=== PATIENT | female | born 2005 | race Two or more races ===

== ENCOUNTER 2024-12-29 09:47 | Emergency (ER) | payer MEDICAID, SELFPAY ==
[2024-12-29 09:54] VITALS: BP 127/76; PULSE 72; RESP 16; TEMP 37.1; O2SAT 97; BMI 26.1
--- NOTE | 2024-12-29 10:18 | PD.EDEAR ---
ED Ear RME/HPI General Chief complaint: Ear Stated complaint: Bug in left ear Time Seen by Provider: 12/29/24 09:51 Arrival date/time: 12/29/24 09:47 This is a 19-year-old female that comes into the emergency room with complaints of bug to the left ear. Patient was seen at the clinic this morning. They irrigated her ear to try to get the bug out. Patient does not think they got the bug out. Patient was told to come to the emergency room. Patient complains of ear pain. Related Data Home Medications ?Medication ?Instructions ?Recorded ?Confirmed atenolol 50 mg tablet 50 mg PO QDAY 02/10/18 07/09/20 ranitidine HCl 75 mg tablet 75 mg PO BID 02/10/18 07/09/20 Previous Rx's ?Medication ?Instructions ?Recorded sulfamethoxazole 800 1 tab PO BID #20 tabs 07/09/20 mg-trimethoprim 160 mg tablet (Bactrim DS) ibuprofen 800 mg tablet 800 mg PO Q6H PRN pain #10 tabs 12/29/24 ofloxacin 0.3 % ear drops 10 drp otic (ear) QDAY 7 days #10 12/29/24 mL Allergies Allergy/AdvReac Type Severity Reaction Status Date / Time No Known Allergies Allergy Verified 12/29/24 09:51 Course Orders Category Date Time Status 1,000 mg IM w/Lido* 1% Med 12/29/24 10:27 Ordered cefTRIAXone [Rocephin] 1,000 mg Lidocaine 1% 20 ml [Xylocaine 1% 20 ML] 2.1 ml IM X1 Ibuprofen Tab [Motrin Tab] Med 12/29/24 10:26 Once 800 mg PO X1 ONE Vital Signs Vital signs: Vital Signs Temperature 98.7 F 12/29/24 09:54 Pulse Rate 72 12/29/24 09:54 Respiratory Rate 16 12/29/24 09:54 Blood Pressure 127/76 12/29/24 09:54 Pulse Oximetry (%) 97 12/29/24 09:54 Oxygen Delivery Method Room Air 12/29/24 09:54 Ear MDM Narrative MDM Narrative:: Upon assessment patient's left ear canals pretty swollen and erythemic. TM is intact. Because of the ambulation patient ears done by both her and the doctors office and now ear canal swollen we will treat for otitis media and otitis externa. Patient will be given a dose of Rocephin here and eardrops to go home with. I will also send patient home with eardrops. Patient told to come back to the emergency room if symptoms change or worsen. Patient told to make sure she follows up with the clinic next week to have her ear rechecked. Medications / Prescriptions Medication administrations:: Medication Administration History Ibuprofen (Ibuprofen Tab 400 Mg Tablet) 800 mg PO X1 ONE Stop: 12/29/24 10:27 Discharge Plan Plan Patient Disposition: HOME (Self Care) Patient condition on transfer: Stable Prescriptions/Referrals Prescriptions/Med Rec: New ibuprofen 800 mg tablet 800 mg PO Q6H PRN (Reason: pain) Qty: 10 0RF ofloxacin 0.3 % drops 10 drp otic (ear) QDAY 7 Days Qty: 10 0RF No Action sulfamethoxazole-trimethoprim [Bactrim DS] 800-160 mg tablet 1 tab PO BID Qty: 20 0RF ranitidine HCl 75 mg Tablet 75 mg PO BID atenolol 50 mg Tablet 50 mg PO QDAY Problem List Clinical Impression: Foreign body in ear Patient/Caregiver Discharge Instructions Discharge Activity: activity as tolerated Education Materials: ED EAR CANAL Foreign Body, ED External Ear Infection (Adult) Additional Instructions: Follow up with primary provider in 1-2 days. Come back to ED if symptoms change or worsen. I let patient know to have her ear rechecked next week with her primary provider. Print Language: Latvian Stand Alone Forms: Yazmin Award Info., Patient Portal Info Letter PA/MICROGRINDER OPERATOR Supervising Physician PA/MICROGRINDER OPERATOR Supervising Physician: [email or web address]
[2024-12-29] MEDS: IBUPROFEN TAB 400 MG TABLET 800 MG PO (10:46)
[2024-12-29] MEDS: cefTRIAXone 1,000 MG, LIDOCAINE 1% 20 ML 2.1 ML IM (10:46)
== END 2024-12-29 11:17 | disposition home or self-care (01) ==
LOC: SERX 11:06
PROVIDERS: Emergency Provider Family Medicine
DX: T16.2XXA Foreign body in left ear, initial encounter (principal); W44.F4XA Insect entering into or through a natural orifice, initial encounter
CPT/HCPCS: 96372; 99283; J0696; J3490; A9270

== ENCOUNTER 2025-01-01 11:00 | Emergency (ER) | payer MEDICAID, SELFPAY ==
[2025-01-01 11:01] VITALS: BMI 26.6
--- NOTE | 2025-01-01 11:44 | EDNOTE_ITS ---
ED Ear RME/HPI General Chief complaint: Ear Stated complaint: RECHECK LEFT EAR POSS INSECT IN EAR Time Seen by Provider: 01/01/25 11:40 Arrival date/time: 01/01/25 11:00 Limitations: no limitations RME / HPI RME / HPI Narrative: 19 year old female who believes she has a foreign body in her left ear. She was seen in clinic last week with similar complaints. Had ears irrigated then came to the ER with continued concerns. She was placed on antibiotics for possible otitis externa. She is here today for an additional ear check and is concerned she has a bug in her left ear. She has no other acute complaints. Related Data Home Medications ?Medication ?Instructions ?Recorded ?Confirmed atenolol 50 mg tablet 50 mg PO QDAY 02/10/1807/09 ranitidine HCl 75 mg tablet 75 mg PO BID 02/10/1806/28 Previous Rx's ?Medication ?Instructions ?Recorded sulfamethoxazole 800 1 tab PO BID #20 tabs mg-trimethoprim 160 mg tablet (Bactrim DS) ibuprofen 800 mg tablet 800 mg PO Q6H PRN pain #10 t abs 12/29/24 ofloxacin 0.3 % ear drops 10 drp otic (ear) QDAY 7 day s #10 12/29/24 mL Allergies Allergy/AdvReac Type Severity Reaction Status Date / Time No Known Allergies Allergy Verified 01/01/25 11:02 Review of Systems Review of Systems Systems Reviewed: All systems reviewed, normal except as documented ED Exam General Limitations: Present no limitations General appearance: Present alert and in no apparent distress Head Head exam: Present atraumatic Eye Eye exam: Present normal appearance, PERRL and EOMI ENT ENT exam: Present normal exam, normal oropharynx, mucous membranes moist, TM's normal bilaterally, normal external ear exam and other (Bilateral ear canals are patent no foreign bodies are appreciated. Tympanic membranes are pearly loomis.) Neck Neck exam: Present normal inspection, full ROM and trachea midline Chest Chest inspection: Present normal inspection and symmetric chest wall rise Respiratory Respiratory exam: Present normal lung sounds bilaterally Cardiovascular Cardiovascular exam: Present regular rate, normal rhythm and normal heart sounds Abdominal Exam Abdominal exam: Present soft and normal bowel sounds Extremities Exam Extremities exam: Present normal inspection and full ROM Back Exam Back exam: Present normal inspection and full ROM Neurological Exam Neurological exam: Present alert and oriented X3 Psychiatric Psychiatric exam: Present normal affect and normal mood Skin Skin exam: Present warm, dry, intact and normal color Course Quality Measures none Ear MDM Narrative MDM Narrative:: 19 year old female who believes she has a foreign body in her left ear. She was seen in clinic last week with similar complaints. Had ears irrigated then came to the ER with continued concerns. She was placed on antibiotics for possible otitis externa. She is here today for an additional ear check and is concerned she has a bug in her left ear. She has no other acute complaints. On exam, patient is nontoxic-appearing and in no visible signs distress. Bilateral ear canals are patent. She is advised to continue her current therapies. Follow-up in clinic as needed. Return as needed for worsening changes. Patient data External records reviewed:: [facility] previous records Clinical information provided by:: patient Social determinants that could affect healthcare access:: none Patient has the following chronic illnesses:: n/a How is presenting disease/condition affected by chronic disease/condition?: no chronic disease Evaluation data The following diagnostics were reviewed and interpreted by me:: other (specify) (n/a) Lab and/or radiology exams considered but not ordered:: n/a Interpretation Summary: n/a Medications / Prescriptions Medications or Prescriptions considered but not ordered:: n/a Medication administrations:: n/a Consultations Consultation(s) initiated? (list below): No Diagnosis Ear Differential Diagnosis: otitis externa, otitis media, foreign body in ear, ruptured TM and cerumen impaction Most likely diagnosis given after review of the tests above:: Recheck otitis externa Admission Indicated Admission indicated?: not indicated Admission Request Was there a request for admission?: No Disposition Plan Disposition Plan: Discharge Discharge Attestation Discharge Attestation: The patient and all family members were given an opportunity to ask questions and understood the discharge instructions. Discharge instructions specifically effects, indications for sooner follow up or return to the emergency department, and the expected course of current diagnosis. Patient condition: Stable Discharge Plan Plan Patient Disposition: HOME (Self Care) Patient condition on transfer: Stable Prescriptions/Referrals Prescriptions/Med Rec: No Action sulfamethoxazole-trimethoprim [Bactrim DS] 800-160 mg tablet 1 tab PO BID Qty: 20 0RF ranitidine HCl 75 mg Tablet 75 mg PO BID atenolol 50 mg Tablet 50 mg PO QDAY ibuprofen 800 mg tablet 800 mg PO Q6H PRN (Reason: pain) Qty: 10 0RF ofloxacin 0.3 % drops 10 drp otic (ear) QDAY 7 Days Qty: 10 0RF Problem List Clinical Impression: Otitis externa Patient/Caregiver Discharge Instructions Education Materials: ED External Ear Infection (Adult) Additional Instructions: - Continue ibuprofen. - Finish your antibiotics as previously prescribed. - Follow-up with your clinic as needed. Print Language: Guinean Stand Alone Forms: Yazmin Award Info., Patient Portal Info Letter
[2025-01-01 11:52] VITALS: BP 112/70; PULSE 80; RESP 18; TEMP 36.9; O2SAT 96
== END 2025-01-01 12:11 | disposition home or self-care (01) ==
LOC: SERX 12:23
PROVIDERS: Emergency Provider Family Medicine; PCP Family Medicine
DX: H60.92 Unspecified otitis externa, left ear (principal)
CPT/HCPCS: 99281